=== PATIENT | male | born 1975 | race Caucasian/White ===

== ENCOUNTER → 2018-02-22 | Outpatient (CLI) | payer OTHER ==
--- NOTE | 2018-02-22 12:51 | PCVCIMAG ---
APPROVED REPORT Study performed: 02/22/2018 10:42:00 Exam: Stress Echocardiogram Indication: Palpitations Patient Location: Echo lab Stress Nurse: Alexandra Ziegler RN Room #: 2 Status: routine Ht: 5 ft 11 in HR: 97 bpm BP: 130/78 mmHg Rhythm: NSR Medical History Medical History: No history of CAD Cardiac Risk Factors: dyslipidemia Previous Cardiac Procedures: none Pretest Chest Pain Characteristics: No chest pain Procedure The patient underwent an Exercise Stress Test using the Antonino Protocol. Blood pressure, heart rate, and EKG were monitored. An Echocardiogram was performed by z[employer]gl[employer] technician in four stages in quad fashion. At peak stress, four selected images were obtained and placed side by side with resting images for comparison. Stress Test Details Stress Test: Exercise stress testing was performed using a Antonino protocol. HR Resting HR: 96 bpmMax Heart Rate (APMHR): 176 bpm Max HR Achieved: 187 bpmTarget HR (85% APMHR): 149 bpm % of APMHR: 106 Recovery HR: 123 bpm HR response to stress: Normal HR response to stress BP Resting BP: 130/78 mmHg Max BP: 140/70 mmHg Recovery BP: 124/70 mmHg ECG Resting ECG: Sinus Rhythm Stress ECG: Sinus Rhythm ST Change: Non-ischemic Arrhythmia: None Recovery ECG: Sinus Rhythm Recovery ST Change: Non-ischemic Recovery Arrhythmia: None Clinical Reason for Termination: Maximal effort Stress Symptoms: none Exercise duration: 13 min 25 sec Highest Stage Achieved: Stage 5: 5.0 mph at 18% grade. Exercise capacity: 17.5 METs Overall Exercise Capacity for Age: Excellent Scale: Active Angina Score: None No complications. Stress ECG Conclusion The patient exercised according to the ANTONINO protocol for 13:25 mins; achieving a work level of 17.5 METS. The resting heart rate of 96 bpm isadora to a maximum heart rate of 187 bpm. This value represent 106% of the maximal, age-predicted heart rate. The resting blood pressure of 130/78 mmHg, isadora to a maximum blood pressure of 140/70mmHg. The exercise test was stopped due to fatigue. Pre-Stress Echo The resting Echocardiogram showed normal left ventricular contractility with an estimated Ejection Fraction of about 55-60%. Normal wall motion in all segments on baseline images. Post-Stress Echo The stress Echocardiogram showed normal left ventricular contractility with an estimated Ejection Fraction of about 65-70%. Normal augmentation of wall motion in all segments on post stress images. Clinical No clinical or ECG evidence for ischemia. Conclusion Clinical Response: Non-ischemic Exercise Capacity: Superior Stress ECG Response: Non-ischemic Stress Echo Images: Non-ischemic No clinical, EKG or echocardiographic evidence for ischemia. No echocardiographic evidence for exercise induced ischemia. Normal stress echocardiogram with maximal exercise stress. 1. Low risk study No prior study available for comparison. <Conclusion> No clinical, EKG or echocardiographic evidence for ischemia. No echocardiographic evidence for exercise induced ischemia. Normal stress echocardiogram with maximal exercise stress. 1. Low risk study
== END | disposition home or self-care (01) ==
LOC: PCVCIMAG 13:10
PROVIDERS: ATTEND Internal Medicine
DX: E78.5 Hyperlipidemia, unspecified (principal); R07.9 Chest pain, unspecified; R00.2 Palpitations
CPT/HCPCS: 93325; 93351